=== PATIENT | male | born 1980 | race Caucasian/White ===

== ENCOUNTER 2017-08-17 11:16 | Emergency (ER) | payer SELFPAY ==
[2017-08-17 11:40] VITALS: BP 144/87
--- NOTE | 2017-08-17 11:47 | UC ---
Shortness of Breath HPI - HPI Summary HPI Summary: Patient complains of chronic lower back pain and fatigue in triage. History of fatigue 1.5 weeks. With further questioning patient has also been having exertional shortness of breath during that same time, states he gets short of breath even walking from the bedroom to the kitchen. Denies fever, cough, sore throat, CP, N/V/D, abdominal pain, change in urine or BM. Medical history is HTN, methamphetamine use, + smoker 1 pack a day. Positive family history, brother and father both had PA with stents placed in their 40s. Denies history of blood clots, recent surgery or trauma. States no methamphetamine use 1 week - History of Current Complaint Hx Obtained From: Patient Onset/Duration: Gradual Onset Current Severity: None Dyspnea At: Exertion - Risk Factors Cardiac: Smoking, Hypertension, Family History <Terry Joseph - Last Filed: 08/17/17 11:53> <Lucille Rodriguez - Last Filed: 08/18/17 11:29> - History of Current Complaint Stated Complaint: BACKPAIN,TIRED Time Seen by Provider: 08/17/17 11:26 - Allergy/Home Medications Allergies/Adverse Reactions: Allergies Allergy/AdvReac Type Severity Reaction Status Date / Time Penicillins Allergy Rash Verified 08/17/17 11:41 Sulfa (Sulfonamide Allergy Rash Verified 08/17/17 11:41 Antibiotics) PMH/Surg Hx/FS Hx/Imm Hx Cardiovascular History: Hypertension - Surgical History Surgical History: None - Family History Known Family History: Positive: Diabetes - Social History Alcohol Use: Weekly Substance Use Type: None Smoking Status (MU): Heavy Every Day Tobacco Smoker Amount Used/How Often: 1 PPD <Terry Joseph - Last Filed: 08/17/17 11:53> Review of Systems Constitutional: Fatigue Skin: Negative Eyes: Negative ENT: Negative Respiratory: Shortness Of Breath Cardiovascular: Negative Gastrointestinal: Negative Genitourinary: Negative Motor: Negative Neurovascular: Negative Musculoskeletal: Negative Neurological: Negative Psychological: Negative Is Patient Immunocompromised?: No All Other Systems Reviewed And Are Negative: Yes <Terry Joseph - Last Filed: 08/17/17 11:53> Physical Exam Triage Information Reviewed: Yes Appearance: Well-Appearing Vital Signs: Initial Vital Signs Temp 98.7 F 08/17/17 11:37 Pulse 102 08/17/17 11:37 Resp 20 08/17/17 11:37 BP 144/87 08/17/17 11:37 Pulse Ox 99 08/17/17 11:37 Vital Signs Reviewed: Yes Eye Exam: Normal ENT Exam: Normal Neck exam: Normal Respiratory Exam: Normal Cardiovascular Exam: Normal Abdominal Exam: Normal Musculoskeletal Exam: Normal Neurological Exam: Normal Psychological Exam: Normal Skin Exam: Normal <Terry Joseph - Last Filed: 08/17/17 11:53> Vital Signs: Initial Vital Signs Temp 98.7 F 08/17/17 11:37 Pulse 102 08/17/17 11:37 Resp 20 08/17/17 11:37 BP 144/87 08/17/17 11:37 Pulse Ox 99 08/17/17 11:37 <Lucille Rodriguez - Last Filed: 08/18/17 11:29> Shortness of Breath Dx - Course Course Of Treatment: Vital signs within normal limits. Patient will be sent to the ED for further evaluation - Differential Dx/Diagnosis Provider Diagnoses: Exertional Shortness of breath <Terry Joseph - Last Filed: 08/17/17 11:53> Discharge - Sign-Out/Discharge Documenting (check all that apply): Discharge/Admit/Transfer - Billing Disposition and Condition Condition: STABLE Disposition: HOME <Terry Joseph - Last Filed: 08/17/17 11:53> - Billing Disposition and Condition Condition: STABLE Disposition: HOME <Lucille Rodriguez - Last Filed: 08/18/17 11:29> - Discharge Plan Condition: Stable Disposition: HOME Patient Education Materials: Dyspnea (ED), Fatigue (ED) Referrals: No Primary Care Phys,NOPCP [Primary Care Provider] - Additional Instructions: Go from urgent care to the emergency department as discussed. Attestation Statement User Type: Provider - I was available for consult. This patient was seen by the ELLA. The patient was not presented to, seen by, or examined by me. -Nilson <Lucille Rodriguez - Last Filed: 08/18/17 11:29>
== END 2017-08-17 12:03 | disposition home or self-care (01) ==
LOC: UCEAST 11:16
DX: R06.02 Shortness of breath (principal); M54.5 Low back pain; R53.83 Other fatigue; I10 Essential (primary) hypertension; Z88.0 Allergy status to penicillin; Z88.2 Allergy status to sulfonamides; F17.210 Nicotine dependence, cigarettes, uncomplicated
CPT/HCPCS: 99211; G0463

== ENCOUNTER 2017-08-17 12:33 | Emergency (ER) | payer SELFPAY ==
[2017-08-17] MEDS ORDERED: NS 0.9% 1000 ML* 1,000 ML IV ONE (13:02)
[2017-08-17] MEDS ORDERED: Midazolam* 1 MG/ML 10 ML VIAL (10 MG) IV PRN (13:03)
[2017-08-17 13:40] LABS: ABS Basophils 0 10^3/ul (0-0.2); ABS Eosinophils 0.1 10^3/ul (0-0.6); ABS Lymphocytes 1.8 10^3/ul (1.0-4.8); ABS Neutrophils 5.7 10^3/ul (1.5-7.7); ABS Nucleated RBC 0 10^3/ul; Eosinophil % 0.9 % (0-6); Hematocrit 45 % (42-52); Hemoglobin 15.4 g/dl (14.0-18.0); Lymphocyte % 21.4 % (25-47); Mean Corpuscular HGB Conc 35 g/dl (31-36); Mean Corpuscular Hemoglobin 32 pg (27-31); Mean Corpuscular Volume 94 fL (80-94); Mean Platelet Volume 7.7 um3 (7.4-10.4); Nucleated Red Blood Cells % 0.1; Platelet Count 230 10^3/ul (150-450); Red Blood Count 4.77 10^6/ul (4.0-5.4); Red Cell Distribution Width 13 % (10.5-15); White Blood Count 8.5 10^3/ul (3.5-10.8)
--- NOTE | 2017-08-17 13:44 | RAD ---
Indication: Headaches and fatigue. CT of the brain was performed without IV contrast. Ventricular structures are midline. No midline shift is noted. There is no evidence of intracranial mass or hemorrhage. No other high or low density lesions are identified. Mastoid air cells and paranasal sinuses are unremarkable. The orbits are otherwise unremarkable. IMPRESSION: No intracranial mass or hemorrhage is noted.
[2017-08-17 13:45] LABS: Urine Appearance Clear; Urine Blood Negative (Negative); Urine Color Yellow; Urine Ketones Negative (Negative); Urine Protein Negative (Negative); Urine Specific Gravity 1.013 (1.010-1.030); Urine Urobilinogen Negative (Negative)
--- NOTE | 2017-08-17 13:45 | RAD ---
INDICATION: Shortness of breath. COMPARISON: None TECHNIQUE: PA and lateral views of the chest were obtained. FINDINGS: The heart and mediastinum are normal in size and contour. The lungs are grossly clear. There is no evidence of large pleural effusion. Visualized bones are normal for the patient's age. There is no radiographic evidence of free air beneath the diaphragm IMPRESSION: No radiographic evidence of acute cardiopulmonary disease.
--- NOTE | 2017-08-17 13:46 | RAD ---
HISTORY: Low back pain COMPARISONS: None TECHNIQUE: Multiple contiguous axial CT scans were obtained of the lumbar spine without intravenous contrast, with coronal and sagittal multiplanar reformations. FINDINGS: SPINAL CANAL: Evaluation of the central canal is limited on CT technique; however, there is no obvious canalicular mass or epidural hemorrhage. ALIGNMENT: The alignment is normal. VERTEBRAL BODIES: There are bilateral pars defects at L5. JOINTS: There is no subluxation or dislocation. MUSCULATURE: Unremarkable INTERVERTEBRAL DISCS: There is mild loss of intervertebral disc height throughout the spine. AXIAL IMAGES: T12-L1: There is no osseous neural foraminal narrowing or central canal stenosis. L1-L2: There is no osseous neural foraminal narrowing or central canal stenosis. L2-L3: There is no osseous neural foraminal narrowing or central canal stenosis. L3-L4: There is no osseous neural foraminal narrowing or central canal stenosis. L4-L5: There is no osseous neural foraminal narrowing or central canal stenosis. L5-S1: There is no osseous neural foraminal narrowing or central canal stenosis. SOFT TISSUES: The visualized soft tissues of the abdomen are unremarkable. OTHER: None IMPRESSION: BILATERAL PARS DEFECTS AT L5. NO OSSEOUS NEURAL FORAMINAL NARROWING OR CENTRAL CANAL STENOSIS.
[2017-08-17 13:49] LABS: INR 0.84 (0.77-1.02)
[2017-08-17 13:53] LABS: EGFR Non-African American 85.1 (>60)
--- NOTE | 2017-08-17 13:58 | RAD ---
Indication: Fatigue. CT of the abdomen and pelvis was performed without oral or IV contrast administration. Coronal and sagittal images were obtained. The lung bases demonstrate no pleural fluid, nodules or masses. Heart demonstrates no pericardial effusion. Liver is normal in size. No focal lesions or intrahepatic ductal dilatation is noted. The common duct is not dilated. The gallbladder demonstrates no calcified gallstones, pericholecystic fluid or wall thickening. The spleen is normal in size. The pancreas demonstrates no mass or pancreatic duct dilatation. No adrenal masses are noted. The kidneys demonstrate no hydronephrosis. No retroperitoneal lymphadenopathy is noted. The urinary bladder is unremarkable. No pelvic adenopathy is identified. The colon is filled with stool. No hernias are noted. No free fluid is identified. IMPRESSION: No abnormal masses or fluid collections are identified in this noncontrast CT study.
--- NOTE | 2017-08-17 16:55 | ED ---
Lavon Huizar Natalie, scribed for Ludin Sierra MD on 08/17/17 at 1307 . Shortness of Breath - HPI Summary HPI Summary: The patient is a 36 y/o M presenting from [facility] to ED c/o feeling fatigued with SOB for three weeks. He states that he cannot walk without feeling like hes going to pass out. Breathing heavy causes him to feel lightheaded. He also states that he was using methamphetamine, last used two weeks ago, in order to go to work because of how he was feeling, but he stopped. The pain is rated 10/ 10 in severity. Pt additionally c/o lower back pain and parietal/occipital intermittent headaches. He denies abd pain, neck pain, abnormal urination and BM , abnormal food/drink consumption, and tick bites. He has never had an episode of this before. - History of Current Complaint Chief Complaint: EDShortnessOfBreath Time Seen by Provider: 08/17/17 12:49 Hx Obtained From: Patient Onset/Duration: Sudden Onset, Lasting Weeks - 3 weeks ago, Still Present Current Severity: Severe Aggrevating Factors: Deep Breaths Alleviating Factors: Nothing Associated Signs & Symptoms: Negative - abd pain, neck pain, abnormal urination and BM, abnormal food/drink consumption, and tick bites - Allergy/Home Medications Allergies/Adverse Reactions: Allergies Allergy/AdvReac Type Severity Reaction Status Date / Time Penicillins Allergy Rash Verified 08/17/17 11:41 Sulfa (Sulfonamide Allergy Rash Verified 08/17/17 11:41 Antibiotics) Home Medications: Home Medications Lisinopril TAB* [Prinivil TAB*] 10 mg PO DAILY 08/17/17 [History Confirmed 08/17] PMH/Surg Hx/FS Hx/Imm Hx Cardiovascular History: Reports: Hx Hypertension - on meds EENT History: Denies: Hx Deafness Infectious Disease History: No Infectious Disease History: Denies: History Other Infectious Disease, Traveled Outside the [place] in Last 30 Days - Family History Known Family History: Positive: Diabetes - Social History Alcohol Use: Weekly Substance Use Type: Reports: None Smoking Status (MU): Heavy Every Day Tobacco Smoker Amount Used/How Often: 1 PPD Review of Systems Positive: Fatigue Positive: Shortness Of Breath Positive: Other - nml BM, nml intake. Negative: Abdominal Pain Genitourinary: Other - nml urination Musculoskeletal: Negative - neck pain Positive: Other - low back pain Skin: Negative - tick bites Positive: Headache All Other Systems Reviewed And Are Negative: Yes Physical Exam - Summary Physical Exam Summary: General: well-appearing, no pain distress Skin: warm, color reflects adequate perfusion, dry Head: normal Eyes: EOMI, SANTINO ENT: normal Neck: supple, nontender Respiratory: CTA, breath sounds present Cardiovascular: RRR Abdomen: soft, nontender Bowel: present Musculoskeletal: normal, strength/ROM intact Neurological: normal, sensory/motor intact, A&O x3 Psychological: affect/mood appropriate Triage Information Reviewed: Yes Vital Signs On Initial Exam: Initial Vitals Temp Pulse Resp BP Pulse Ox 98 F 89 18 164/104 97 08/17/17 12:37 08/17/17 12:37 08/17/17 12:37 08/17/17 12:37 08/17/17 12:37 Vital Signs Reviewed: Yes Diagnostics - Vital Signs Vital Signs Temp Pulse Resp BP Pulse Ox 08/17/17 12:37 98 F 89 18 164/104 97 - Laboratory Lab Results: Lab Results 08/17/17 08/17/17 08/17/17 Range/Units 13:19 13:19 13:19 WBC 8.5 (3.5-10.8) 10^3/ul RBC 4.77 (4.0-5.4) 10^6/ul Hgb 15.4 (14.0-18.0) g/dl Hct 45 (42-52) % MCV 94 (80-94) fL MCH 32 H (27-31) pg MCHC 35 (31-36) g/dl RDW 13 (10.5-15) % Plt Count 230 (150-450) 10^3/ul MPV 7.7 (7.4-10.4) um3 Neut % (Auto) 66.0 (38-83) % Lymph % (Auto) 21.4 L (25-47) % Garrett % (Auto) 11.3 H (0-7) % Eos % (Auto) 0.9 (0-6) % Baso % (Auto) 0.4 (0-2) % Absolute Neuts (auto) 5.7 (1.5-7.7) 10^3/ul Absolute Lymphs (auto) 1.8 (1.0-4.8) 10^3/ul Absolute Monos (auto) 1.0 H (0-0.8) 10^3/ul Absolute Eos (auto) 0.1 (0-0.6) 10^3/ul Absolute Basos (auto) 0 (0-0.2) 10^3/ul Absolute Nucleated RBC 0 10^3/ul Nucleated RBC % 0.1 INR (Anticoag Therapy) 0.84 (0.77-1.02) APTT 34.8 (26.0-36.3) seconds D-Dimer, Quantitative < 200 (Less Than 230) ng/mL Sodium (139-145) mmol/L Potassium (3.5-5.0) mmol/L Chloride (101-111) mmol/L Carbon Dioxide (22-32) mmol/L Anion Gap (2-11) mmol/L BUN (6-24) mg/dL Creatinine (0.67-1.17) mg/dL Est GFR ( Amer) (>60) Est GFR (Non-Af Amer) (>60) BUN/Creatinine Ratio (8-20) Glucose (70-100) mg/dL Lactic Acid (0.5-2.0) mmol/L Calcium (8.6-10.3) mg/dL Magnesium (1.9-2.7) mg/dL Total Bilirubin (0.2-1.0) mg/dL AST (13-39) U/L ALT (7-52) U/L Alkaline Phosphatase (34-104) U/L Ammonia (16-53) mcmol/L Total Creatine Kinase (10-223) U/L CK-MB (CK-2) (0.6-6.3) ng/mL Troponin I (<0.04) ng/mL C-Reactive Protein (< 5.00) mg/L B-Natriuretic Peptide ( - 100) pg/mL Total Protein (6.4-8.9) g/dL Albumin (3.2-5.2) g/dL Globulin (2-4) g/dL Albumin/Globulin Ratio (1-3) Lipase (11.0-82.0) U/L TSH (0.34-5.60) mcIU/mL Urine Color Yellow Urine Appearance Clear Urine pH 6.0 (5-9) Ur Specific [place] 1.013 (1.010-1.030) Urine Protein Negative (Negative) Urine Ketones Negative (Negative) Urine Blood Negative (Negative) Urine Nitrate Negative (Negative) Urine Bilirubin Negative (Negative) Urine Urobilinogen Negative (Negative) Ur Leukocyte Esterase Negative (Negative) Urine Glucose Negative (Negative) Salicylates (<30) mg/dL Urine Opiates Screen (None Detect) Acetaminophen mcg/mL Ur Barbiturates Screen (None Detect) Ur Phencyclidine Scrn (None Detect) Ur Amphetamines Screen (None Detect) U Benzodiazepines Scrn (None Detect) Urine Cocaine Screen (None Detect) U Cannabinoids Screen (None Detect) Serum Alcohol (<10) mg/dL Monoscreen (Negative) 08/17/17 08/17/17 08/17/17 Range/Units 13:19 13:19 13:19 WBC (3.5-10.8) 10^3/ul RBC (4.0-5.4) 10^6/ul Hgb (14.0-18.0) g/dl Hct (42-52) % MCV (80-94) fL MCH (27-31) pg MCHC (31-36) g/dl RDW (10.5-15) % Plt Count (150-450) 10^3/ul MPV (7.4-10.4) um3 Neut % (Auto) (38-83) % Lymph % (Auto) (25-47) % Garrett % (Auto) (0-7) % Eos % (Auto) (0-6) % Baso % (Auto) (0-2) % Absolute Neuts (auto) (1.5-7.7) 10^3/ul Absolute Lymphs (auto) (1.0-4.8) 10^3/ul Absolute Monos (auto) (0-0.8) 10^3/ul Absolute Eos (auto) (0-0.6) 10^3/ul Absolute Basos (auto) (0-0.2) 10^3/ul Absolute Nucleated RBC 10^3/ul Nucleated RBC % INR (Anticoag Therapy) (0.77-1.02) APTT (26.0-36.3) seconds D-Dimer, Quantitative (Less Than 230) ng/mL Sodium 137 L (139-145) mmol/L Potassium 4.2 (3.5-5.0) mmol/L Chloride 103 (101-111) mmol/L Carbon Dioxide 29 (22-32) mmol/L Anion Gap 5 (2-11) mmol/L BUN 12 (6-24) mg/dL Creatinine 0.99 (0.67-1.17) mg/dL Est GFR ( Amer) 109.4 (>60) Est GFR (Non-Af Amer) 85.1 (>60) BUN/Creatinine Ratio 12.1 (8-20) Glucose 99 (70-100) mg/dL Lactic Acid 1.1 (0.5-2.0) mmol/L Calcium 9.0 (8.6-10.3) mg/dL Magnesium 2.2 (1.9-2.7) mg/dL Total Bilirubin 0.30 (0.2-1.0) mg/dL AST 18 (13-39) U/L ALT 22 (7-52) U/L Alkaline Phosphatase 89 (34-104) U/L Ammonia (16-53) mcmol/L Total Creatine Kinase 65 (10-223) U/L CK-MB (CK-2) 1.2 (0.6-6.3) ng/mL Troponin I 0.00 (<0.04) ng/mL C-Reactive Protein 3.59 (< 5.00) mg/L B-Natriuretic Peptide 10 ( - 100) pg/mL Total Protein 6.4 (6.4-8.9) g/dL Albumin 4.1 (3.2-5.2) g/dL Globulin 2.3 (2-4) g/dL Albumin/Globulin Ratio 1.8 (1-3) Lipase 19 (11.0-82.0) U/L TSH 1.13 (0.34-5.60) mcIU/mL Urine Color Urine Appearance Urine pH (5-9) Ur Specific [place] (1.010-1.030) Urine Protein (Negative) Urine Ketones (Negative) Urine Blood (Negative) Urine Nitrate (Negative) Urine Bilirubin (Negative) Urine Urobilinogen (Negative) Ur Leukocyte Esterase (Negative) Urine Glucose (Negative) Salicylates (<30) mg/dL Urine Opiates Screen (None Detect) Acetaminophen mcg/mL Ur Barbiturates Screen (None Detect) Ur Phencyclidine Scrn (None Detect) Ur Amphetamines Screen (None Detect) U Benzodiazepines Scrn (None Detect) Urine Cocaine Screen (None Detect) U Cannabinoids Screen (None Detect) Serum Alcohol (<10) mg/dL Monoscreen (Negative) 08/17/17 08/17/17 08/17/17 Range/Units 13:20 13:20 13:20 WBC (3.5-10.8) 10^3/ul RBC (4.0-5.4) 10^6/ul Hgb (14.0-18.0) g/dl Hct (42-52) % MCV (80-94) fL MCH (27-31) pg MCHC (31-36) g/dl RDW (10.5-15) % Plt Count (150-450) 10^3/ul MPV (7.4-10.4) um3 Neut % (Auto) (38-83) % Lymph % (Auto) (25-47) % Garrett % (Auto) (0-7) % Eos % (Auto) (0-6) % Baso % (Auto) (0-2) % Absolute Neuts (auto) (1.5-7.7) 10^3/ul Absolute Lymphs (auto) (1.0-4.8) 10^3/ul Absolute Monos (auto) (0-0.8) 10^3/ul Absolute Eos (auto) (0-0.6) 10^3/ul Absolute Basos (auto) (0-0.2) 10^3/ul Absolute Nucleated RBC 10^3/ul Nucleated RBC % INR (Anticoag Therapy) (0.77-1.02) APTT (26.0-36.3) seconds D-Dimer, Quantitative (Less Than 230) ng/mL Sodium (139-145) mmol/L Potassium (3.5-5.0) mmol/L Chloride (101-111) mmol/L Carbon Dioxide (22-32) mmol/L Anion Gap (2-11) mmol/L BUN (6-24) mg/dL Creatinine (0.67-1.17) mg/dL Est GFR ( Amer) (>60) Est GFR (Non-Af Amer) (>60) BUN/Creatinine Ratio (8-20) Glucose (70-100) mg/dL Lactic Acid (0.5-2.0) mmol/L Calcium (8.6-10.3) mg/dL Magnesium (1.9-2.7) mg/dL Total Bilirubin (0.2-1.0) mg/dL AST (13-39) U/L ALT (7-52) U/L Alkaline Phosphatase (34-104) U/L Ammonia 55 H (16-53) mcmol/L Total Creatine Kinase (10-223) U/L CK-MB (CK-2) (0.6-6.3) ng/mL Troponin I (<0.04) ng/mL C-Reactive Protein (< 5.00) mg/L B-Natriuretic Peptide ( - 100) pg/mL Total Protein (6.4-8.9) g/dL Albumin (3.2-5.2) g/dL Globulin (2-4) g/dL Albumin/Globulin Ratio (1-3) Lipase (11.0-82.0) U/L TSH (0.34-5.60) mcIU/mL Urine Color Urine Appearance Urine pH (5-9) Ur Specific [place] (1.010-1.030) Urine Protein (Negative) Urine Ketones (Negative) Urine Blood (Negative) Urine Nitrate (Negative) Urine Bilirubin (Negative) Urine Urobilinogen (Negative) Ur Leukocyte Esterase (Negative) Urine Glucose (Negative) Salicylates < 2.50 (<30) mg/dL Urine Opiates Screen (None Detect) Acetaminophen < 15 mcg/mL Ur Barbiturates Screen (None Detect) Ur Phencyclidine Scrn (None Detect) Ur Amphetamines Screen (None Detect) U Benzodiazepines Scrn (None Detect) Urine Cocaine Screen (None Detect) U Cannabinoids Screen (None Detect) Serum Alcohol < 10 (<10) mg/dL Monoscreen Negative (Negative) 08/17/17 Range/Units 13:20 WBC (3.5-10.8) 10^3/ul RBC (4.0-5.4) 10^6/ul Hgb (14.0-18.0) g/dl Hct (42-52) % MCV (80-94) fL MCH (27-31) pg MCHC (31-36) g/dl RDW (10.5-15) % Plt Count (150-450) 10^3/ul MPV (7.4-10.4) um3 Neut % (Auto) (38-83) % Lymph % (Auto) (25-47) % Garrett % (Auto) (0-7) % Eos % (Auto) (0-6) % Baso % (Auto) (0-2) % Absolute Neuts (auto) (1.5-7.7) 10^3/ul Absolute Lymphs (auto) (1.0-4.8) 10^3/ul Absolute Monos (auto) (0-0.8) 10^3/ul Absolute Eos (auto) (0-0.6) 10^3/ul Absolute Basos (auto) (0-0.2) 10^3/ul Absolute Nucleated RBC 10^3/ul Nucleated RBC % INR (Anticoag Therapy) (0.77-1.02) APTT (26.0-36.3) seconds D-Dimer, Quantitative (Less Than 230) ng/mL Sodium (139-145) mmol/L Potassium (3.5-5.0) mmol/L Chloride (101-111) mmol/L Carbon Dioxide (22-32) mmol/L Anion Gap (2-11) mmol/L BUN (6-24) mg/dL Creatinine (0.67-1.17) mg/dL Est GFR ( Amer) (>60) Est GFR (Non-Af Amer) (>60) BUN/Creatinine Ratio (8-20) Glucose (70-100) mg/dL Lactic Acid (0.5-2.0) mmol/L Calcium (8.6-10.3) mg/dL Magnesium (1.9-2.7) mg/dL Total Bilirubin (0.2-1.0) mg/dL AST (13-39) U/L ALT (7-52) U/L Alkaline Phosphatase (34-104) U/L Ammonia (16-53) mcmol/L Total Creatine Kinase (10-223) U/L CK-MB (CK-2) (0.6-6.3) ng/mL Troponin I (<0.04) ng/mL C-Reactive Protein (< 5.00) mg/L B-Natriuretic Peptide ( - 100) pg/mL Total Protein (6.4-8.9) g/dL Albumin (3.2-5.2) g/dL Globulin (2-4) g/dL Albumin/Globulin Ratio (1-3) Lipase (11.0-82.0) U/L TSH (0.34-5.60) mcIU/mL Urine Color Urine Appearance Urine pH (5-9) Ur Specific [place] (1.010-1.030) Urine Protein (Negative) Urine Ketones (Negative) Urine Blood (Negative) Urine Nitrate (Negative) Urine Bilirubin (Negative) Urine Urobilinogen (Negative) Ur Leukocyte Esterase (Negative) Urine Glucose (Negative) Salicylates (<30) mg/dL Urine Opiates Screen None detected (None Detect) Acetaminophen mcg/mL Ur Barbiturates Screen None detected (None Detect) Ur Phencyclidine Scrn None detected (None Detect) Ur Amphetamines Screen None detected (None Detect) U Benzodiazepines Scrn None detected (None Detect) Urine Cocaine Screen None detected (None Detect) U Cannabinoids Screen None detected (None Detect) Serum Alcohol (<10) mg/dL Monoscreen (Negative) Result Diagrams: 08/17/17 13:19 08/17/17 13:19 Lab Statement: Any lab studies that have been ordered have been reviewed, and results considered in the medical decision making process. - Radiology CXR Xray Interpretation: No Acute Changes - No radiographic evidence of acute cardiopulmonary disease. ED physician has reviewed this report. Radiology Interpretation Completed By: Radiologist - CT Lumbar Spine CT CT Interpretation: Positive (See Comments) - Bilateral pars defects at L5. No osseous neural foraminal narrowing or central canal stenosis. ED physician has reviewed this report. CT Interpretation Completed By: Radiologist Abd/Pel CT CT Interpretation: No Acute Changes - No abnormal masses or fluid collections are identified in this noncontrast CT study. ED physician has reviewed this report. CT Interpretation Completed By: Radiologist Brain CT CT Interpretation: No Acute Changes - No intracranial mass or hemorrhage is noted. ED physician has reviewed this report. CT Interpretation Completed By: Radiologist - EKG 13:05 Cardiac Rate: NL EKG Rhythm: Sinus Rhythm - 72 BPM Ectopy: None EKG Interpretation: ST elevation. Probable nml early repol pattern. Course/Dx - Course Course Of Treatment: Pts medications reviewed this visit. Allergies noted. High blood pressure noted and patient advised to follow up with PCP. DISCUSSED RESULTS WITH PATIENT. F/U PMD; RETURN IF WORSE. - Diagnoses Provider Diagnoses: Poorly controlled blood pressure, Fatigue, Shortness of breath, Low back pain, Pars defect of lumbar spine Discharge - Sign-Out/Discharge Documenting (check all that apply): Discharge/Admit/Transfer - Discharge Plan Condition: Stable Disposition: HOME Patient Education Materials: Fatigue (ED), Shortness of Breath (ED), Acute Low Back Pain (ED) Referrals: [facility] – [place] PHYSICIAN REFERRAL [Outside] Additional Instructions: FOLLOW UP WITH YOUR DOCTOR. TAKE IBUPROFEN 600MG EVERY 6 HOURS NEEDED FOR YOUR LOW BACK PAIN. RETURN TO THE EMERGENCY DEPARTMENT FOR ANY WORSENING OF YOUR CONDITION OR QUESTIONS OR CONCERNS. - Billing Disposition and Condition Condition: STABLE Disposition: HOME The documentation as recorded by the Lavon correia Natalie accurately reflects the service I personally performed and the decisions made by me, Ludin Sierra MD.
[2017-08-17 17:04] VITALS: BP 148/90
== END 2017-08-17 17:05 | disposition home or self-care (01) ==
LOC: ED 12:33
DX: I10 Essential (primary) hypertension (principal); R53.83 Other fatigue; R06.02 Shortness of breath; M54.5 Low back pain; M47.816 Spondylosis without myelopathy or radiculopathy, lumbar region; F17.200 Nicotine dependence, unspecified, uncomplicated; Z88.0 Allergy status to penicillin; Z88.2 Allergy status to sulfonamides
CPT/HCPCS: 36415; 70450; 71046; 72131; 74176; 80053; 80074; 80307; 80320; 80329; 81003; 82140; 82550; 82553; 83605; 83690; 83735; 83880; 84443; 84484; 85025; 85379; 85610; 85730; 86140; 86308; 86618; 93005; 96360; 99283; G0480